=== PATIENT | male | born 1965 | race Two or more races ===

== ENCOUNTER 2021-08-17 22:53 | Emergency (ER) | payer OTHER ==
[~2021-08-17] VITALS: Ht 182.9 cm; Wt 86.2 kg
[2021-08-18] MEDS ORDERED: TETANUS-DIPTH-ACEL PERTUSSIS 0.5ML SYR Tdap IM ONE (02:00)
[2021-08-18] MEDS ORDERED: BACITRACIN TOP OINT 1 UD PKG TOP ONE (02:15)
[2021-08-18 02:23] VITALS: BP 122/79
== END 2021-08-18 02:26 | disposition home or self-care (01) ==
LOC: ER 22:53 → EDBD 22:53 → ER 08-18 02:26
DX: S50.352A Superficial foreign body of left elbow, initial encounter (principal); W45.8XXA Other foreign body or object entering through skin, initial encounter; Y93.89 Activity, other specified; Y92.89 Other specified places as the place of occurrence of the external cause; Y99.8 Other external cause status
CPT/HCPCS: 10120; 90471; 90715

== ENCOUNTER 2021-10-23 16:29 | Emergency (ER) | payer OTHER ==
[~2021-10-23] VITALS: Ht 180.3 cm; Wt 96.2 kg
[2021-10-23 17:55] VITALS: BP 113/80
[2021-10-23] MEDS ORDERED: INDO50CA82 PO (17:56)
[2021-10-23] MEDS ORDERED: IBUPROFEN 800 MG TAB PO ONE (18:00)
== END 2021-10-23 18:15 | disposition home or self-care (01) ==
LOC: ER 16:29 → EDUNIT# 16:29 → ER 18:10
DX: M79.642 Pain in left hand (principal); E11.9 Type 2 diabetes mellitus without complications; E78.5 Hyperlipidemia, unspecified
CPT/HCPCS: 73120